=== PATIENT | male | born 1950 | race Caucasian/White ===

== ENCOUNTER 2017-04-10 06:48 | Day surgery (SDC) | payer MEDICARE, OTHER ==
[2017-04-05 10:01] LABS: BASOPHILS 0.6 %; BASOPHILS ABSOLUTE 0.04 10/3/uL (0.0-0.16); EOSINOPHILS 3.2 %; HEMATOCRIT 41.6 % (40.0-51.0); HEMOGLOBIN 14.5 g/dL (13.6-17.8); IMMATURE GRANULOCYTES 0.2 %; IMMATURE GRANULOCYTES ABSOLUTE 0.01 10/3/uL (0.0-0.11); LYMPHOCYTES 44.2 %; LYMPHOCYTES ABSOLUTE 2.73 10/3/uL (0.67-4.30); MEAN CORPUS HGB CONC 34.9 g/dL (32.0-36.0); MEAN CORPUSCULAR HEMOGLOB 31.8 pg (26.0-34.0); MEAN CORPUSCULAR VOLUME 91.2 fL (80-100); MEAN PLATELET VOLUME 10.2 fL (9.2-13.0); MONOCYTES 9.4 %; MONOCYTES ABSOLUTE 0.58 10/3/uL (0.21-1.20); NEUTROPHILS 42.4 %; NEUTROPHILS ABSOLUTE 2.61 10/3/uL (2.02-8.40); PLATELET COUNT 259 10/3/uL (150-400); RBC DISTRIBUTION WIDTH 13.1 % (12.0-16.0); RED CELL COUNT 4.56 10/6/uL (4.7-6.1); WHITE BLOOD CELLS 6.2 10/3/uL (4.5-10.5)
[2017-04-05 10:02] LABS: MANUAL DIFF NO %
[2017-04-05 10:07] LABS: BUN (BLOOD UREA NITROGEN) 6 MG/DL (6-23); CALCIUM, SERUM 9.1 MG/DL (8.5-10.4); CHLORIDE, SERUM 111 MMOL/L (96-112); CO2 (CARBON DIOXIDE) 32 MMOL/L (24-34); CREATININE 1.04 MG/DL (0.70-1.30); GFR AFRICAN AMERICAN 85 ML/MIN (>=60); GFR NON AFRICAN AMERICAN 73 ML/MIN (>=60); GLUCOSE, SERUM 81 MG/DL (60-99); POTASSIUM, SERUM 4.5 MMOL/L (3.5-5.3); SODIUM, SERUM 145 MMOL/L (135-148)
[2017-04-05 10:39] LABS: INTERNATIONAL NORMAL RATI 0.9 UNITS (-); PARTIAL THROMBO TIME 26.9 SEC (22.5-37.2); PROTIME (NOT ORD) 12.1 SEC (12.0-14.5)
--- NOTE | ~2017-04-10 | OP ---
Record Of Operation [facility] [address] [place]. [address] NAME: AMBREEN AVENDANO : 48 STATUS : [facility]#: [id number] AGE: 67 ADM/REG DATE : 04/10/17 MR#: [id number] REPORT SERV DATE: 04/11/17 DICTATED BY: VICTORINO FRIAS DATE: 04/11/17 REPORT STATUS : Draft TRANSCRIBED BY: DORCAS DATE: 04/11/17 DATE OF PROCEDURE: 04/10/2017 PREOPERATIVE DIAGNOSES: 1. Recurrent epistaxis. 2. Left nasal septal deviation. POSTOPERATIVE DIAGNOSES: 1. Recurrent epistaxis. 2. Left nasal septal deviation. OPERATIVE PROCEDURE PERFORMED: 1. Septoplasty. 2. Diagnostic nasal endoscopy and cautery of the left anterior epistaxis. INDICATIONS AND SIGNIFICANT HISTORY: Patient is a 67-year-old male with significant history of recurrent episodes of left epistaxis. He is being cauterized numerous times and was felt to benefit from septoplasty for a given nasal septal deviation and endoscopic cautery in the operating room setting. OPERATIVE PROCEDURE AND FINDINGS: After informed consent was obtained, the patient was brought to the operating room and placed on the operating table in supine position, at which point, general endotracheal anesthesia was induced by the Anesthesia Service, and the nose was prepped and draped in a standard fashion. The septum was infiltrated with approximately 3 mL of 2% lidocaine 1:100,000 epinephrine, and the nose was decongested with topical adrenaline or Afrin-soaked pledgets. Attention was turned toward the septum, where the caudal edge of the septum was addressed through the left naris. It was exposed using a small nasal speculum and a 15 blade scalpel was used to incise along the caudal edge of the septum. This incision was carried down through the mucoperichondrium and mucoperichondrial flap was elevated along the left side of the septum using a Hennessy elevator. Next, the bony cartilaginous junction was disarticulated anteriorly as well as posteriorly. Once the disarticulation was performed, the cartilaginous septum largely returned back to midline. The bony septal deviation was then removed with open Daniel-Arzola forceps followed by use of a 4 mm chisel for removal of the maxillary crest. Mucoperichondrial flaps were replaced. Again, the cartilaginous septum appeared to be back to midline and nasal endoscopy was performed. No additional areas of epistaxis were noted. There was a prominent blood vessel along Little's area anteriorly. This was cauterized with a suction Bovie cautery. The injury did not appear to extend through the cartilage into the contralateral naris. At this point, wound was closed anteriorly with 4-0 gut suture. Two silicone nasal splints were placed, one in the left naris, one at the right naris and sewn using a 2-0 Ethilon suture. The patient was then turned back toward anesthesia, aroused from anesthesia, and taken to the postanesthesia care unit in satisfactory condition. COMPLICATIONS: None. ESTIMATED BLOOD LOSS: Less than 30 mL. Record Of Operation [address] [address] NAME: AMBREEN AVENDANO : 48 STATUS : [facility] PAT#: [id number] AGE: 67 ADM/REG DATE : 04/10/17 MR#: [id number] REPORT SERV DATE: 04/11/17 DICTATED BY: VICTORINO FRIAS DATE: 04/11/17 REPORT STATUS : Draft TRANSCRIBED BY: DORCAS DATE: 04/11/17 IV FLUIDS: Per Anesthesia. DLA/MODL Victorino Frias M.D. / [id number] CC: Beverly Holley STANLEY
[~2017-04-10 06:48] MED LIST: CENTRUM PO; CRESTOR40 MG PO; KAPIDEX60 MG PO; SINGULAIR1 PO; ZETIA PO
== END 2017-04-10 16:12 | disposition home or self-care (01) ==
LOC: SDC 06:48
PROVIDERS: Otolaryngology
PROC: 0W3Q7ZZ Control Bleeding in Respiratory Tract, Via Natural or Artificial Opening (ICD-10-PCS; principal; 2017-04-10 09:15)
PROC: 09BM0ZZ Excision of Nasal Septum, Open Approach (ICD-10-PCS; 2017-04-10 09:15)
DX: R04.0 Epistaxis (principal); J34.2 Deviated nasal septum; E78.5 Hyperlipidemia, unspecified; J30.2 Other seasonal allergic rhinitis; K21.9 Gastro-esophageal reflux disease without esophagitis; Z79.899 Other long term (current) drug therapy; Z88.8 Allergy status to other drugs, medicaments and biological substances; Z98.890 Other specified postprocedural states
CPT/HCPCS: 80048; 85025; 85610; 85730; 88300; A9270-GY; J0690; J1170; J2250; J2270; J2370; J2405; J2710; J3010